=== PATIENT | female | born 1960 | race Caucasian/White ===

== ENCOUNTER 2017-01-18 18:46 | Emergency (ER) | payer MEDICAID ==
[2017-01-18 18:56] VITALS: BP 136/74; PULSE 64; RESP 18; TEMP 98.5; O2SAT 99
--- NOTE | 2017-01-18 19:28 | ED PDOC ---
HPI: Eye Injury/Pain Time Seen by Provider: 01/18/17 18:58 Chief Complaint (Nursing): Eye Problem Chief Complaint (Provider): Right eye redness History Per: Patient History/Exam Limitations: no limitations Onset/Duration Of Symptoms: Days (began yesterday, 01/17/17) Current Symptoms Are (Timing): Still Present Injury To Eye?: No Associated Symptoms: denies: Pain Additional Complaint(s): 56 year old female presents to the emergency department with a complaint of right eye redness that the patient noticed when she woke up yesterday morning, 01/17/17. Patient denies any associated eye pain, she denies any foreign body sensation, no recent trauma or injury. No vision loss or vision changes. She denies any coughing or vomiting recently. No associated headache or dizziness. Patient denies any drainage from the affected eye. Patient does not wear contact lenses or glasses. PMD: Dr. Thuan Jefferson MD Past Medical History Reviewed: Historical Data, Nursing Documentation, Vital Signs Vital Signs: Last Vital Signs Temp 98.5 F 01/18/17 18:54 Pulse 64 01/18/17 18:54 Resp 18 01/18/17 18:54 BP 136/74 01/18/17 18:54 Pulse Ox 99 01/18/17 18:54 - Medical History PMH: No Chronic Diseases - Surgical History Surgical History: Cholecystectomy Other surgeries: right knee surgery - Family History Family History: States: No Known Family Hx - Living Arrangements Living Arrangements: With Family - Social History Current smoker - smoking cessation education provided: No Alcohol: Social Drugs: Denies - Home Medications Home Medications: Ambulatory Orders Medication Instructions Recorded Tobramycin [Tobrex] 5 ml TOP QID #1 bottle 01/18/17 - Allergies Allergies/Adverse Reactions: Allergies Allergy/AdvReac Type Severity Reaction Status Date / Time No Known Allergies Allergy Verified 01/18/17 18:53 Review of Systems ROS Statement: Except As Marked, All Systems Reviewed And Found Negative Eyes: Positive for: Redness (to right eye, denies any trauma or pain). Negative for: Pain, Vision Change, Conjunctivae Inflammation, Eyelid Inflammation Respiratory: Negative for: Cough Gastrointestinal: Negative for: Nausea, Vomiting Neurological: Negative for: Headache, Dizziness Physical Exam - Reviewed Nursing Documentation Reviewed: Yes Vital Signs Reviewed: Yes - Physical Exam Appears: Positive for: Well, Non-toxic, No Acute Distress Head Exam: Positive for: ATRAUMATIC, NORMAL INSPECTION, NORMOCEPHALIC Skin: Positive for: Normal Color Eye Exam: Positive for: EOMI, PERRL, Other (Subconjunctival hemorrhage to the lateral aspect of the right eye, no active drainage, left eye normal). Negative for: Normal appearance Cardiovascular/Chest: Positive for: Regular Rate, Rhythm Respiratory: Positive for: Normal Breath Sounds Neurologic/Psych: Positive for: Alert, Oriented, Gait (steady). Negative for: Aphasia, Facial Droop - ECG O2 Sat by Pulse Oximetry: 99 (RA) Pulse Ox Interpretation: Normal Medical Decision Making Medical Decision Making: Time: 18:54 Initial Impression: Right eye redness and irritation Procedure Note: 2 drops tetracaine applied to right eye followed by stain with flouroscein strip, examination under UV light reveals corneal abrasion at 6 pm. Procedure was tolerated well by patient, no complications. Time: 19:40 Upon provider reevaluation patient is medically stable, and requires no further treatment in the ED at this time. Patient will be discharged home with Rx for Tobrex eye drops. Counseling was provided and all questions were answered regarding diagnosis and need for follow up with referred eyelet machine operator, Dr. Arturo Rosales. There is agreement to discharge plan. Return if symptoms persist or worsen. Clinical Impression: Subconjunctival Hemorrhage, Corneal Abrasion Scribe Attestation: Documented by Krys Walker, acting as a scribe for Tricia Whittington PA-C. Provider Scribe Attestation: All medical record entries made by the Scribe were at my direction and personally dictated by me. I have reviewed the chart and agree that the record accurately reflects my personal performance of the history, physical exam, medical decision making, and the department course for this patient. I have also personally directed, reviewed, and agree with the discharge instructions and disposition. Disposition - Clinical Impression Clinical Impression: Subconjunctival hemorrhage, Corneal abrasion - Patient ED Disposition Is Patient to be Admitted: No Counseled Patient/Family Regarding: Studies Performed, Diagnosis, Need For Followup, Rx Given - Disposition Referrals: Arturo Rosales MD [Staff Provider] - Disposition: Routine/Home Disposition Time: 19:40 Condition: STABLE Additional Instructions: Apply drops as directed. Tylenol for pain as needed. Follow-up with eye doctor in one to 2 days. Prescriptions: Tobramycin [Tobrex] 5 ml TOP QID #1 bottle Instructions: Subconjunctival Hemorrhage (ED), Corneal Abrasion (ED)
== END 2017-01-18 20:01 | disposition home or self-care (01) ==
LOC: H.ER 18:46
DX: H11.31 Conjunctival hemorrhage, right eye (principal)

== ENCOUNTER 2017-09-29 10:33 | Emergency (ER) | payer MEDICAID, OTHER ==
[2017-09-29 11:01] VITALS: BMI 25.7
[2017-09-29 11:03] VITALS: O2SAT 98
[2017-09-29] MEDS ORDERED: Sodium Chloride 0.9% 1,000 ML IV STA (12:00)
--- NOTE | 2017-09-29 12:13 | ED PDOC ---
HPI: Headache Time Seen by Provider: 09/29/17 11:20 Chief Complaint (Nursing): Headache Chief Complaint (Provider): Headache, Fever History Per: Patient History/Exam Limitations: no limitations Onset/Duration Of Symptoms: Days (x2) Current Symptoms Are (Timing): Still Present Additional Complaint(s): 57 year old female presents to the emergency department complaining of a headache since last night. Took aspirin at home with no relief. Patient reports associated bodyaches and fever, with temperature over 100 at home. Patient also had 1 episode of vomiting this morning, prompting her to come to the ED. Patient states she is no longer nauseous, and now feels hungry. Denies any associated cough, sore throat, ear pain, back pain, or urinary symptoms. PMD: Arnav Kaba Past Medical History Reviewed: Historical Data, Nursing Documentation, Vital Signs Vital Signs: Last Vital Signs Temp 100.3 F H 09/29/17 11:02 Pulse 79 09/29/17 11:02 Resp 20 09/29/17 11:02 BP 128/76 09/29/17 11:02 Pulse Ox 98 09/29/17 11:02 - Medical History PMH: No Chronic Diseases - Surgical History Surgical History: Cholecystectomy - Family History Family History: States: No Known Family Hx - Home Medications Home Medications: Ambulatory Orders Medication Instructions Recorded Tobramycin [Tobrex] 5 ml TOP QID #1 bottle 01/18/17 Naproxen [Naprosyn] 500 mg PO BID PRN #20 tablet 09/29/17 Oseltamivir Phosphate [Tamiflu] 75 mg PO BID #10 capsule 09/29/17 - Allergies Allergies/Adverse Reactions: Allergies Allergy/AdvReac Type Severity Reaction Status Date / Time No Known Allergies Allergy Verified 01/18/17 18:53 Review of Systems ROS Statement: Except As Marked, All Systems Reviewed And Found Negative Constitutional: Positive for: Fever, Other (Generalized bodyaches) ENT: Negative for: Ear Pain, Throat Pain Respiratory: Negative for: Cough Gastrointestinal: Positive for: Vomiting (x1). Negative for: Nausea, Diarrhea Genitourinary Female: Negative for: Dysuria, Frequency, Hematuria Musculoskeletal: Negative for: Back Pain Neurological: Positive for: Headache Physical Exam - Reviewed Nursing Documentation Reviewed: Yes Vital Signs Reviewed: Yes - Physical Exam Appears: Positive for: Non-toxic, No Acute Distress Head Exam: Positive for: ATRAUMATIC, NORMAL INSPECTION, NORMOCEPHALIC Skin: Positive for: Normal Color, Warm (to touch). Negative for: Rash Eye Exam: Positive for: EOMI, Normal appearance, PERRL ENT: Positive for: Normal ENT Inspection, Pharynx Is (clear). Negative for: Pharyngeal Erythema, Tonsillar Exudate Neck: Positive for: Normal, Painless ROM, Supple Cardiovascular/Chest: Positive for: Regular Rate, Rhythm. Negative for: Murmur Respiratory: Positive for: Normal Breath Sounds. Negative for: Accessory Muscle Use, Respiratory Distress Gastrointestinal/Abdominal: Positive for: Normal Exam, Soft. Negative for: Tenderness, Distended Back: Positive for: Normal Inspection. Negative for: Vertebral Tenderness Extremity: Positive for: Normal ROM. Negative for: Pedal Edema, Deformity Neurologic/Psych: Positive for: Alert, Oriented (x3). Negative for: Motor/ Sensory Deficits - Laboratory Results Result Diagrams: 09/29/17 12:26 09/29/17 12:26 - ECG O2 Sat by Pulse Oximetry: 98 (RA) Pulse Ox Interpretation: Normal Medical Decision Making Medical Decision Making: Initial Impression: Headache, viral illness Time: 12:00 Initial Plan: * Labs * IV fluids * Pepcid 20 mg IV * Zofran 4 mg IV * Toradol 30 mg IV * Reevaluation Labs reviewed: (+) flu A Scribe Attestation: Documented by Sarah Bello, acting as a scribe for Fatmata Funes MD Provider Scribe Attestation: All medical record entries made by the Scribe were at my direction and personally dictated by me. I have reviewed the chart and agree that the record accurately reflects my personal performance of the history, physical exam, medical decision making, and the department course for this patient. I have also personally directed, reviewed, and agree with the discharge instructions and disposition. Disposition - Clinical Impression Clinical Impression: Influenza A - Patient ED Disposition Is Patient to be Admitted: No Doctor Will See Patient In The: Office Counseled Patient/Family Regarding: Diagnosis, Need For Followup, Rx Given - Disposition Referrals: Arnav Kaba MD [Family Provider] - Disposition: Routine/Home Disposition Time: 14:38 Condition: STABLE Prescriptions: Naproxen [Naprosyn] 500 mg PO BID PRN #20 tablet PRN Reason: Pain, Moderate (4-7) Oseltamivir Phosphate [Tamiflu] 75 mg PO BID #10 capsule Instructions: Flu, Adult (DC) Forms: [employer] ([employer]) (Liberian) Print Language: PERUVIAN - POA Present On Arrival: None
[2017-09-29 12:43] LABS: BASO % 0.5 % (0.0-2.0); EOS % 0.2 % (0.0-4.0); HEMOGLOBIN 14.3 g/dL (12.0-16.0); LYMPH # 0.7 K/uL (1.0-4.3); LYMPH % 15.5 % (20.0-40.0); MEAN CELL VOLUME 92.6 fl (81.0-99.0); MEAN CORPUSCULAR HEMOGLOBIN 30.9 pg (27.0-31.0); MEAN CORPUSCULAR HGB CONC 33.4 g/dL (33.0-37.0); MEAN PLATELET VOLUME 7.8 fl (7.2-11.7); MONO # 0.5 K/uL (0.0-0.8); MONO % 11.4 % (0.0-10.0); NEUT # 3.3 K/uL (1.8-7.0); NEUT % 72.4 % (50.0-75.0); RBC 4.62 Mil/uL (3.80-5.20); RED CELL DISTRIBUTION WIDTH 14.1 % (11.5-14.5); WHITE BLOOD COUNT 4.5 K/uL (4.8-10.8)
[2017-09-29 12:48] LABS: BLOOD UREA NITROGEN 12 mg/dl (7-17); CALCIUM 8.9 mg/dL (8.4-10.2); GFR AFRICAN-AMERICAN > 60; GFR NON-AFRICAN AMERICAN > 60
[2017-09-29 14:09] LABS: URINE BACTERIA RARE (<OCC); URINE BILIRUBIN NEGATIVE (NEGATIVE); URINE BLOOD SMALL (NEGATIVE); URINE CLARITY CLOUDY (Clear); URINE COLOR YELLOW (YELLOW); URINE GLUCOSE (UA) NEG (Normal); URINE LEUKOCYTE ESTERASE NEG Leu/uL (Negative); URINE NITRATE NEGATIVE (NEGATIVE); URINE PROTEIN 30 mg/dL (NEGATIVE); URINE UROBILINOGEN 0.2-1.0 mg/dL (0.2-1.0)
[2017-09-29 15:47] VITALS: BP 112/58; PULSE 65; RESP 18; TEMP 98.5
== END 2017-09-29 16:17 | disposition home or self-care (01) ==
LOC: H.ER 10:33
DX: J09.X2 Influenza due to identified novel influenza A virus with other respiratory manifestations (principal)
CPT/HCPCS: 80048; 81003; 85025; 87804; 96374; 96375; 99285; J1885; J2405; J7040